=== PATIENT | male | born 1975 | race Caucasian/White ===

== ENCOUNTER 2017-10-17 18:00 | Emergency (ER) | payer OTHER ==
[2017-10-17 18:14] VITALS: BP 149/98; PULSE 89; RESP 18; TEMP 97.3; O2SAT 98
[2017-10-17] MEDS ORDERED: SKIN ADHESIVE (DERMABOND) 1 EACH TP ONE (18:20)
--- NOTE | 2017-10-17 18:38 | EDPHY ---
H & P Time Seen by Provider: 10/17/17 18:05 HPI/ROS: 42-year-old male presents complaining laceration to right little finger while preparing Thanksgiving dinner. Review of systems As per HPI General no fever no chills no weakness HEENT no eye pain no eye discharge. No eye redness, no sore throat Respiratory no cough, no shortness of breath Cardiac no chest pain, no peripheral edema GI no abdominal pain, no diarrhea, no constipation, no nausea, no vomiting no flank pain, no hematuria, no dysuria Musculoskeletal no myalgias, no joint pain Heme no easy bruising, no easy bleeding Endo no polyuria, no polydipsia Skin no rashes, no pruritus Neuro no syncope, no dizziness, no headaches Psych is no suicidal ideation, no homicidal ideation Past Medical/Surgical History: Chiari malformation Social History: Alcohol socially, denies drug use Smoking Status: Former smoker Physical Exam: 42-year-old male Alert and oriented in no acute distress nontoxic appearance, afebrile Atraumatic normocephalic Neck no JVD Lungs clear to auscultation, no respiratory distress Heart regular rate and rhythm Extremities no cyanosis clubbing edema Right hand-right little finger dorsal aspect with 2 cm linear laceration non gaping Full range of motion, good capillary refill, sensation intact Constitutional: Initial Vital Signs Temperature (C) 36.3 C 10/17/17 18:12 Heart Rate 89 10/17/17 18:12 Respiratory Rate 18 10/17/17 18:12 Blood Pressure 149/98 H 10/17/17 18:12 O2 Sat (%) 98 10/17/17 18:12 O2 Delivery Mode Room Air Allergies/Adverse Reactions: No Known Allergies Allergy (Verified 10/17/17 18:11) Home Medications: Medication Instructions Recorded NK [No Known Home Meds] 10/17/17 Medical Decision Making Procedures: Procedure note-laceration The wound was irrigated with copious amounts of saline and allowed to dry thoroughly. Dermabond adhesive skin care was used. Patient tolerated procedure well. ED Course/Re-evaluation: Patient seen and evaluated for non gaping superficial finger laceration Impression/plan Finger laceration amenable to adhesive repair Departure - Departure Disposition: Home, Routine, Self-Care Clinical Impression: Finger laceration Condition: Good Instructions: Laceration (ED), Skin Adhesive Care (ED) Referrals: Cortez,Velazquez A, MD [Primary Care Provider] - As per Instructions
== END 2017-10-17 18:45 | disposition home or self-care (01) ==
LOC: CED 18:00
PROC: 0HQFXZZ Repair Right Hand Skin, External Approach (ICD-10-PCS; principal; 2017-10-17)
DX: S61.216A Laceration without foreign body of right little finger without damage to nail, initial encounter (principal); Z87.891 Personal history of nicotine dependence; X58.XXXA Exposure to other specified factors, initial encounter